=== PATIENT | female | born 1950 | race Caucasian/White ===

== ENCOUNTER 2017-01-31 07:17 | Day surgery (SDC) | payer MEDICARE ==
[~2017-01-31] VITALS: Ht 147.3 cm; Wt 83.3 kg
[~2017-01-31 07:17] MED LIST: ATOR10TA9 PO; BUPIVACAINE/PF 0.25% ONE; DIPH25CA61 PO; EPINEPHRINE 1 MG/ML, 1ML ONE; GABA-827 PO; IBUP-11 PO; INSU100V8 SQ; LOPE2CAP94 PO; METO25TA35 PO; MIRA50TA PO; NEOMY/POLYMYXIN B GU IRR. 1 ML IRRIG ONE; OMEP20TA62 PO; PHEN177S49 PO; RANI150T4 PO; TRIA15CR3 TD; oxygen INH
[2017-01-31 07:43] VITALS: BP 178/90
[2017-01-31] MEDS ORDERED: LIDOCAINE 1%, 2ML SQ PRN (08:00)
[2017-01-31] MEDS: LACTATED RINGERS 1,000 ML IV SCH ×2 (08:01→11:35)
[2017-01-31] MEDS ORDERED: FENTANYL PF 250 MCG/5ML ONE (08:26)
[2017-01-31] MEDS ORDERED: MIDAZOLAM 1 MG/ML, 2ML ONE ×2 (08:26→11:11)
[2017-01-31] MEDS ORDERED: CEFAZOLIN 1,000 MG ONE (08:31)
[2017-01-31] MEDS ORDERED: ROCURONIUM 10 MG/ML,10ML ONE (08:31)
[2017-01-31] MEDS ORDERED: ONDANSETRON 2MG/ML, 2ML ONE ×3 (08:31→13:47)
[2017-01-31] MEDS ORDERED: DEXAMETHASONE 4 MG/ML, 1ML ONE (08:31)
[2017-01-31] MEDS ORDERED: NEOSTIGMINE 1 MG/ML, 10ML ONE (08:31)
[2017-01-31] MEDS ORDERED: SUCCINYLCHOLINE 20 MG/ML, 10ML ONE (08:31)
[2017-01-31] MEDS ORDERED: PROPOFOL 10 MG/ML, 20ML ONE (08:31)
[2017-01-31] MEDS ORDERED: GLYCOPYRROLATE 0.2MG/1ML, 5ML ONE (08:31)
[2017-01-31] MEDS ORDERED: LABETALOL 5MG/ML, 20ML ONE (09:58)
[2017-01-31] MEDS ORDERED: PROMETHAZINE 25 MG/ML, 1ML IV PRN (10:00)
[2017-01-31] MEDS ORDERED: OXYcodone 5 MG/5 ML ORAL.SOL UDC PO PRN (10:00)
[2017-01-31] MEDS ORDERED: FENTANYL PF 100 MCG/2ML IV PRN (10:00)
[2017-01-31] MEDS ORDERED: LABETALOL 5MG/ML, 20ML IV PRN (10:00)
[2017-01-31] MEDS ORDERED: ACETAMINOPHEN 325 MG TABLET PO PRN (10:00)
[2017-01-31] MEDS ORDERED: ONDANSETRON 2MG/ML, 2ML IVPush PRN ×2 (10:00→14:00)
[2017-01-31] MEDS ORDERED: hydrALAzine 20 MG/ML, 1ML IV PRN (10:00)
[2017-01-31] MEDS ORDERED: HYDROmorphone 1 MG/ML, 1ML ONE (11:17)
[2017-01-31] MEDS: HYDROmorphone 1 MG/ML, 1ML IV PRN ×4 (11:19→11:55)
[2017-01-31] MEDS ORDERED: MIDAZOLAM 1 MG/ML, 2ML IV PRN (11:30)
[2017-01-31] MEDS ORDERED: ACETAMINOPHEN 650 MG/20.3 ML UDC ONE (11:43)
[2017-01-31] MEDS ORDERED: OXYcodone 5 MG/5 ML ORAL.SOL UDC ONE (11:44)
== END 2017-01-31 14:20 ==
LOC: OUT 07:17
PROVIDERS: ATTEND Obstetrics & Gynecology Female Pelvic Medicine and Reconstructive Surgery
DX: N39.46 Mixed incontinence (principal); N81.89 Other female genital prolapse; N81.5 Vaginal enterocele; N32.81 Overactive bladder; I10 Essential (primary) hypertension; E11.9 Type 2 diabetes mellitus without complications; K21.9 Gastro-esophageal reflux disease without esophagitis; J44.9 Chronic obstructive pulmonary disease, unspecified; Z87.440 Personal history of urinary (tract) infections; Z88.0 Allergy status to penicillin; Z90.710 Acquired absence of both cervix and uterus; Z98.890 Other specified postprocedural states; Z86.14 Personal history of Methicillin resistant Staphylococcus aureus infection
CPT/HCPCS: 57265; 57282; 57288; 82962; C1781; J0171; J0330; J0690; J1100; J1170; J2250; J2405; J2704; J2710; J3010; J3490; J7120